=== PATIENT | female | born 1950 | race Caucasian/White ===

== ENCOUNTER 2021-03-29 15:19 | Emergency (ER) | payer OTHER ==
[~2021-03-29] VITALS: Ht 165.1 cm; Wt 82.0 kg
[2021-03-29] MEDS: SODIUM CHLORIDE 0.9% 1,000 ML IV ONE (17:45)
[2021-03-29] MEDS: FAMOTIDINE 20MG/2ML VIAL IV ONE (17:59)
[2021-03-29] MEDS: METHYLPREDNISOLONE SOD SUCC 125 MG/2 ML VIAL IV ONE (17:59)
[2021-03-29 22:01] LABS: BASOPHILS % 0.2 % (0.0-2.0); EOSINOPHILS % 0.1 % (0.0-5.0); HEMATOCRIT. 38.9 % (36.0-48.0); HEMOGLOBIN. 13.3 g/dL (12.0-16.0); MEAN CORPUSCULAR HEMOGLOBIN 29.8 pg (28.0-32.0); MEAN CORPUSCULAR VOLUME 86.8 fL (81.0-99.0); MEAN PLATELET VOLUME 9.7 fl (7.4-10.4); MONOCYTES % 1.2 % (2.0-8.0); NEUTROPHILS % 82.5 % (40.0-76.0); PLATELET 170 x1000/uL (130-400); RED BLOOD CELL COUNT 4.48 mill/uL (4.2-5.4); RED CELL DISTRIBUTION WIDTH 13.8 % (11.6-14.6)
[2021-03-29 22:10] LABS: CHLORIDE 111 mEq/L (98-107)
[2021-03-29 22:30] VITALS: BP 154/78
[2021-03-30] MEDS ORDERED: DIPH25TA62 MT (00:17)
[2021-03-30] MEDS ORDERED: FAMO40TA7 MT (00:17)
[2021-03-30] MEDS ORDERED: P50 MT (00:17)
== END 2021-03-30 00:28 | disposition home or self-care (01) ==
LOC: ER 15:19
DX: R22.0 Localized swelling, mass and lump, head (principal); E03.9 Hypothyroidism, unspecified
CPT/HCPCS: 36415; 71045; 80053; 83880; 84484; 85025; 93005; 96361; 96374; 96375; 99285; J2930; J3490; J7030